=== PATIENT | male | born 1975 | race Caucasian/White ===

== ENCOUNTER 2020-11-09 15:30 | Outpatient (RCR) | payer OTHER, SELFPAY ==
--- NOTE | 2020-10-22 13:49 | PTOPEVAL ---
PHYSICAL THERAPY EVALUATION AND PLAN OF CARE Thank you for referring Mars Dodd to [facility].? The patient is scheduled to be seen for therapy? 2x/week for 3 weeks. Please review, sign, date and return this plan of care AMRIT. I agree with and certify that the following plan of care is medically necessary. Referring Physician Date Attending Provider: Quinn Phan MD Evaluation Diagnosis right shoulder pain Onset July 2020 Subjective Information Reports that he had an Query Text:As Reported By Patient/ injection on 10/02/2020 to the Family right shoulder which helped to resolve the pain in the shoulder. The pain started 2 months ago after using a stump blower. 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 When there was pain it was when reaching behind the back and when reaching overhead. States those movements are non -painful at this time. Also reports some sort of popping or clicking. Assessment Self Report Self Report Pain Level 0 Pain Score Pain Score 0: Self Report Upper Extremity Range of Motion Scapular/ Shoulder Range of Motion Right Shoulder Flexion - Active 140 Shoulder Abduction - Active 140 Shoulder Medial Rotation - Active L1 Query Text:Reach Behind the Back Shoulder Lateral Rotation - Active 55 Scapular/Shoulder Range of Motion left shoulder ext. rot. = Comments 65deg Scapular/Shoulder Right Scapular Retraction - Middle Trapezius 3- Fair - Scapular Retraction - Lower Trapezius 3 Fair Shoulder Flexion Strength 5 Normal Shoulder Abduction Strength 4+ Good + Shoulder Medial Rotation Strength 5 Normal Shoulder Lateral Rotation Strength 4+ Good + Muscle Length Testing Upper Trapezius Muscle Length (R) Mild Tightness Levaetor Scapulae Muscle Length (R) Moderate Tightness Shoulder Internal Rotators Muscle Length (R) Moderate Tightness Pectoralis major (R) Moderate Tightness Posture Sitting Position Posture Evaluation View Anterior Head/C-Spine Posture Flexed Thoracic Spine Posture Neutral Shoulder Posture (R) Forward Additional Posture Comments generally slouched posture but corrects with cues Palpation tender to palpation at right ACJ, tenderness and trigger points noted to right
--- NOTE | 2020-10-25 13:44 | PCPTNOTE ---
Patient called & cancelled scheduled appointment this date due to work.
--- NOTE | 2020-10-29 13:29 | PCPTNOTE ---
Patient called & cancelled scheduled appointment this date due to bad weather.
--- NOTE | 2020-11-12 16:20 | PTOPEVAL ---
PHYSICAL THERAPY DISCHARGE SUMMARY Thank you for referring Mars Dodd to [facility].? The patient has been seen 4 visits for the dx of right shoulder pain. The patient has met his goals and is compliant with his HEP. Plan to D/C PT-no skilled needs at this time. Please review, sign, date and return this plan of care AMRIT. I agree with and certify the following plan of care. Referring Physician Date Attending Provider: Quinn Phan MD *PT Outpatient Discharge Start: 10/22/20 12:29 Freq: Status: Active Protocol: Document 11/09/20 15:35 MLV (Rec: 11/09/20 17:09 MLV [id number]) Assessment Status Discharge Evaluation Information Problem Diagnosis right shoulder pain Onset July 2020 Additional Evaluation Detail Patient reports still being pain free but is concerned about the pain returning. Patient feels he is doing well with his exercises and had numerous questions regarding pain prevention and physiologic changes from age. Pain Assessment Self Report Self Report Pain Level 0 Pain Score Pain Score 0: Self Report Upper Extremity Range of Motion General Upper Extremity Range of Motion Gross Upper Extremity Range of Motion improved rotation motion: bert. Comments ER 65 degrees, IR 80 degrees with reach behind the back symmetrical and now pain free Upper Extremity Muscle Strength Testing General Upper Extremity Strength Gross Upper Extremity Strength Comments scapular retraction improved to 3+/5 and patient is independent in postural correction with arm elevation to prevent impingement process Palpation Assessment Palpation Palpation 50% decreased tightness at traps, levator scap and pect. muscles bert. (symmetrical to left side) Special Tests-Upper Extremity Shoulder Special Tests Empty Can (supraspinatus) Test Negative Left,Negative Right Painful Arc Negative Left,Negative Right Drop Arm Test Negative Left,Negative Right PT Clinical Summary Mr. Dodd has progressed with a decrease in tightness, improved postural strength and control, improved range and patient remains free of pain. The patient is independent
== END 2020-11-13 12:51 | disposition home or self-care (01) ==
LOC: ANHPT 15:30
PROVIDERS: PCP Family Medicine; Visit Provider Orthopaedic Surgery
DX: M75.41 Impingement syndrome of right shoulder (principal)
CPT/HCPCS: 97110; 97140; 97161

== ENCOUNTER → 2020-11-20 15:57 | Outpatient (CLI) | payer OTHER, SELFPAY ==
--- NOTE | ~2020-11-20 | MR_ITS ---
EXAMINATION: MR shoulder RT wo con DATE: 11/20/2020 17:02 INDICATION: Right shoulder pain. TECHNIQUE: Magnetic resonance imaging (MRI) of the right shoulder was performed without intravenous c ontrast. Sequences included axial PD-weighted FS FSE, coronal oblique PD-weighted FS FSE and T2-weigh avinash FS FSE, and sagittal oblique T2-weighted FS FSE and T1-weighted FSE. COMPARISON: Right shoulder radiographs 10/02/2020 FINDINGS: Coracoacromial arch: The acromion undersurface is curved in morphology (type II). There is severe acromioclavicular joint osteoarthritis including inferiorly directed osteophytes. There is moderate subacromial/subdeltoid bu rsitis. Rotator cuff: There is a full-thickness tear of supraspinatus tendon measuring 1.3 cm anterior to posterior by 3.0 cm proximal to distal. There is a small interstitial tear of infraspinatus tendon. Teres minor tendon is normal. There is moderate subscapularis tendinopathy. There is no asymmetric fatty atrophy of the rotator cuff muscle bellies. Biceps tendon and glenoid labrum: Biceps tendon is in bicipital groove. There is moderate intra-articular biceps tendinopathy with part ial tear. There is a tear of superior glenoid labrum from 11:00 to 1:00 (SLAP tear). Fluid: There is a small glenohumeral joint effusion. Bones/cartilage: There is shallow partial-thickness cartilage loss of glenoid and humeral head. IMPRESSION: 1. Full-thickness rotator cuff tear. 2. Mild glenohumeral joint chondrosis. SLAP tear. 3. Partial tear of biceps tendon. 4. Severe acromioclavicular joint osteoarthritis. 5. Small glenohumeral joint effusion and moderate subacromial/subdeltoid bursitis. Reviewed, dictated and finalized at location A. SPORT NURSE IMPRESSION: 1. Full-thickness rotator cuff tear. 2. Mild glenohumeral joint chondrosis. SLAP tear. 3. Partial tear of biceps tendon. 4. Severe acromioclavicular joint osteoarthritis. 5. Small glenohumeral joint effusion and moderate subacromial/subdeltoid bursit is.
== END ==
PROVIDERS: Visit Provider Orthopaedic Surgery
DX: S43.431A Superior glenoid labrum lesion of right shoulder, initial encounter (principal); M75.121 Complete rotator cuff tear or rupture of right shoulder, not specified as traumatic; S46.211A Strain of muscle, fascia and tendon of other parts of biceps, right arm, initial encounter; M19.011 Primary osteoarthritis, right shoulder; M75.51 Bursitis of right shoulder; M25.411 Effusion, right shoulder
CPT/HCPCS: 73221

== ENCOUNTER → 2021-02-15 02:28 | Outpatient (CLI) | payer OTHER, SELFPAY ==
[2021-02-15 18:15] LABS: SARS-CoV-2 RNA PCR Negative
== END ==
PROVIDERS: PCP Family Medicine; Visit Provider Orthopaedic Surgery
DX: Z01.812 Encounter for preprocedural laboratory examination (principal); Z20.822 Contact with and (suspected) exposure to COVID-19
CPT/HCPCS: C9803; U0003; U0005

== ENCOUNTER 2021-02-15 07:53 | Outpatient (CLI) | payer OTHER, SELFPAY ==
--- NOTE | 2021-02-15 08:15 | ECG_ITS ---
Measurements Intervals [place] Rate: 73 P: 70 [place]: 161 QRS: 39 QRSD: 92 T: 39 QT: 358 QTc: 397 Interpretive Statements SINUS RHYTHM DELAYED PRECORDIAL R/S TRANSITION BASELINE ARTIFACT- I, III, AVL, AVF BORDERLINE ECG Electronically Signed On 02-15-2021 9:14:24 CDT by Ray Toure D.O.
== END 2021-02-15 07:54 | disposition home or self-care (01) ==
LOC: ANHSURGERY 07:57
PROVIDERS: PCP Family Medicine; Visit Provider Orthopaedic Surgery
DX: E78.2 Mixed hyperlipidemia (principal); I10 Essential (primary) hypertension; Z01.818 Encounter for other preprocedural examination; R94.31 Abnormal electrocardiogram [ECG] [EKG]
CPT/HCPCS: 93005

== ENCOUNTER 2021-02-18 01:25 | Day surgery (SDC) | payer OTHER, SELFPAY ==
[2021-02-07 11:39] VITALS: BMI 33.2
[2021-02-18] VITALS (9 sets, daily range): BP systolic 119–140; BP diastolic 57–78; PULSE 57–80; RESP 16–18; TEMP 36.2–36.3; O2SAT 93–100; BMI 32.6
--- NOTE | 2021-02-18 06:29 | WPDANESEPPF ---
Anes - Initial Pre Proc Eval Procedure: Operation Date: 02/18/21 07:30 Proposed Procedures p Open Right Rotator Cuff Repair Acromioplasty With Distal Clavicle Excision - Quinn Phan MD Date/Time: 02/18/21 06:29 Surgeon: Quinn Phan MD Pre Op Diagnosis: Right Rotator cuff tear, AC arthritis Patient Data Age: 45 Gender: M Height: 1.75 m Weight: 102 kg Allergies Allergy/AdvReac Type Severity Reaction Status Date / Time No Known Allergies Allergy Unverified 02/07/21 11:37 Home Medications Medication Instructions Recorded Confirmed Type cyanocobalamin (vitamin B-12) 1,000 mcg PO HS 01/15/21 02/12/21 History 1,000 mcg tablet amlodipine 5 mg PO HS 02/07/21 02/12/21 History atorvastatin 10 mg PO HS 02/07/21 02/12/21 History lisinopril 20 mg PO HS 02/07/21 02/12/21 History meloxicam 15 mg PO HS 02/07/21 02/12/21 History Patient hx anesthesia problems: none Family hx anesthesia problems: none PMFSH Past Medical History Medical History Abnormal fasting glucose (11/17/20) fasting glucose 109 Arthritis of right acromioclavicular joint BMI 32.0-32.9,adult BMI 34.0-34.9,adult Chronic low back pain without sciatica Chronic right shoulder pain Encounter for prostate cancer screening Essential (primary) hypertension Hypersomnia Mixed hyperlipidemia Nail fungus Osteoarthritis involving multiple joints on both sides of body Right rotator cuff tear Right shoulder pain Tobacco use disorder, continuous Vitamin B12 deficiency anemia (11/17/20) 317 on 11/17/2020 Family History Family History Mother Family history of cardiovascular disease, Onset Age: 69 Family history of malignant neoplasm Father Family history of cardiovascular disease, Onset Age: 72 Social History Social History Smoking packs per day: 1.5 Smoking cigarettes per day: 30.0 Years smoked: 25 Smoking pack-years: 37.50 Smoking status: Current every day smoker Tobacco type: cigarettes Alcohol intake: current Alcohol use details: RARE Substance use: never Substance use type: does not use Living arrangements: with family Spiritual care concerns: No Anes - Eval Final PreProcedure Day of Procedure 02/18/21 06:29 Patient weight: obese Heart: regular rate and rhythm Lungs: clear to auscultation and normal air movement Airway: Mallampati scale class II Neurological: alert and oriented Last oral intake: >/= 8 hours ASA classification: III Emergent: no Anesthetic plan: proceed Anesthesia type and monitoring: general ETT Informed Consent: The patient's anesthetic plan and its attendant risks and benefits were discussed with the patient/family/POA. Questions were solicited and answers provided to the satisfaction of the patient/family/POA.
[2021-02-18] MEDS: ACETAMINOPHEN 500 MG TABLET 1000 MG PO (06:53)
[2021-02-18] MEDS: LACTATED RINGERS 1,000 ML 30 ML IV CONT ×2 (07:05→09:00)
[2021-02-18] MEDS: KETOROLAC 15 MG/ML VIAL (*BKC) IV PUSH (07:08)
--- NOTE | 2021-02-18 07:12 | WPDHPUPDATE1 ---
History and Physical Update Update Date/Time: 02/18/21 07:12 History and Physical has been reviewed, including an updated exam of the patient. There are NO changes in the patient's condition. Risks, benefits, and alternatives have been discussed and questions answered. Patient agrees to proceed with procedure.
[2021-02-18] MEDS: ceFAZolin 2 GM/D5W 50 ML 2 GM/50 ML BAG IVPB (07:28)
--- NOTE | 2021-02-18 07:31 | WPDANESPNB ---
Anes - Peripheral Nerve Block Date/Time: 02/18/21 07:31 I have discussed with the patient/family/POA the placement of a peripheral nerve block for post-operative pain management, including associated risks, benefits, complications, and side effects. Alternative methods of post-operative analgesia were detailed. Questions were solicited and answers provided to the satisfaction of the patient/family/POA. Time-Out: A pre-procedural Time-Out was completed immediately before starting the procedure and confirmed: Patient Identification, Site, Procedure, Patient Position and the Availability of Requisite Equipment. Clinical Indications: Acute post-operative pain management requested by the operative surgeon. Nerve Block Insertion Note Anes-nerve block: supraclavicular right Patient position: supine Skin prep: chlorhexidine Needle: 22 gauge, stimulating, insulated echogenic needle. Needle length: 80 mm Technique: ultrasound (in plane) Injectate: bupivacaine 0.5% with epi 5 mcg/ml (20cc) Observations: tolerated well Complications: none Procedure start time:: 715 Procedure end time::
[2021-02-18] MEDS: BUPIVACAINE/EPINEPHRINE 0.25% 10 ML VIAL INFILTRATE (08:06)
--- NOTE | 2021-02-18 09:07 | W.PM.PROC2 ---
Procedure Note - Detailed Date of Procedure 02/18/21 Pre-op Diagnosis Right Rotator cuff tear, AC arthritis Post-op Diagnosis same Procedure Performed Right rotator cuff repair with distal clavicle excision Surgeon Quinn Phan MD Certified Nuclear Medicine Technologist Zayda Stovall Anesthesia GETA and regional Indications see preoperative H and P Findings see operative note Description of Procedure Patient was identified and proper site identified. In the preop holding area the anesthesia team performed a rightupper extremity block. He was then taken to the operating room and transferred to the or table taking care to pad the torso and extremities. After general anesthetic induction and intubation, he was put in a semi beach chair position in the usual manner for a right shoulder procedure. His head was secured taking care to neither rotate nor extend the head and neck. The right upper extremity was prepped and draped free in usual sterile fashion. The subcutaneous tissue in the area of the incision was injected with 10 cc of 0.25% Marcaine and epinephrine solution. An oblique anterior incision was made extending from the AC joint distally in line with the fibers of the deltoid. Subcutaneous tissue was sharply dissected down to the deltoid fascia. The deltoid was dissected off the anterior portion of the acromion in the distal end of the clavicle. A 2 cm split was made at the junction between the anterior and middle thirds of the deltoid. Using the microsagittal saw the last 8 mm of clavicle removed. The saw was also used to perform the acromioplasty and then the undersurface of the acromion was rasped smooth. there was what appeared to be an avulsion of the supraspinatus off the anterior portion of the greater tuberosity. Biceps was inspected and noted to be in good condition. The tuberosity was prepared for the repair and the tendon was able to be delivered to the repair site with the arm at the side. Tendon edges were freshened up. The supraspinatus was repaired back to the greater tuberosity with 2. Ethibond suture passed through bony bridge in a double row fashion. The margins were oversewn with 2. Vicryl suture taking care not to over tighten the rotator interval. This gave a scott repair which was stable as the shoulder was taken through range of motion. The wound was irrigated with sterile NaCl solution. The deltoid was repaired back to the acromion with 2. Ethibond suture passed through bone and the remainder of the deltoid repair carried out with 2. Vicryl. Subcutaneous tissue was reapproximated Two 0 Vicryl and then with 2. Strata fix and then tissue adhesive used for the skin. Sterile dressing was applied. There were no known intraoperative complications, and perioperative antibiotics were administered. Estimated Blood Loss -30.0 Drains No Packing No Pathology none sent Complications No immediate complications Condition stable Disposition PACU
[2021-02-18] MEDS: ONDANSETRON INJ 4 MG/2 ML VIAL IV PUSH (10:53)
== END 2021-02-18 11:20 | disposition home or self-care (01) ==
PROVIDERS: PCP Family Medicine; Visit Provider Orthopaedic Surgery
PROC: (CPT 23420; principal; 2021-02-18 07:30)
DX: M75.101 Unspecified rotator cuff tear or rupture of right shoulder, not specified as traumatic (principal); M19.011 Primary osteoarthritis, right shoulder; G89.18 Other acute postprocedural pain; I10 Essential (primary) hypertension; E78.2 Mixed hyperlipidemia; D51.3 Other dietary vitamin B12 deficiency anemia; F17.210 Nicotine dependence, cigarettes, uncomplicated; E66.9 Obesity, unspecified; Z68.32 Body mass index [BMI] 32.0-32.9, adult
CPT/HCPCS: 23412; 23120; 64415; 93005; A4565; A9270; C9803; J0330; J0690; J1100; J1885; J2250; J2405; J2704; J3010; J7120; U0003; U0005